=== PATIENT | female | born 1990 | race African-American/Black ===

== ENCOUNTER 2017-09-23 17:23 | Emergency (ER) | payer BC, MEDICAID ==
[~2017-09-23] VITALS: Ht 165.1 cm; Wt 87.0 kg
[~2017-09-23 17:23] MED LIST: FLAGYL
[2017-09-24 01:30] VITALS: BP 121/67
== END 2017-09-24 02:10 | disposition home or self-care (01) ==
LOC: ER 21:35
DX: S40.862A Insect bite (nonvenomous) of left upper arm, initial encounter (principal); S40.861A Insect bite (nonvenomous) of right upper arm, initial encounter; L03.113 Cellulitis of right upper limb; J45.909 Unspecified asthma, uncomplicated; W57.XXXA Bitten or stung by nonvenomous insect and other nonvenomous arthropods, initial encounter; Y93.89 Activity, other specified; Y92.89 Other specified places as the place of occurrence of the external cause; Y99.8 Other external cause status
CPT/HCPCS: 99283; Z7610